=== PATIENT | male | born 1980 | race Caucasian/White ===

== ENCOUNTER 2022-02-12 13:30 | Emergency (ER) | payer OTHER ==
[~2022-02-12] VITALS: Ht 190 cm; Wt 91.0 kg
--- NOTE | 2022-02-12 15:16 | ED General ---
General Chief Complaint: COVID19 Suspect/Confirmed Stated Complaint: FEVER - HEADACHE - CONFUSION - STIFF NECK Nursing Triage Note: PT STATES HIS CHILDREN HAVE HAD HAND FOOT AND MOUTH, HE PT HAS BEEN RUNNING A FEVER WITH BUMPS ON HIS HANDS, TEMP TO 103.7 WITH A HEADACHE, NO APPITITE, FEVER UP AND DOWN YESTERDAY WITH HEADACHE. LAST TOOK EXCEDRIN AT 1000, IBUPROFEN 2200 LAST NIGHT. STIFF NECK AT TRIAGE. VOMITED ONCE WEDNESDAY. FATIGUE BUT NOT EATING Source of Information: Patient Exam Limitations: No Limitations History of Present Illness Date Seen by Provider: Feb 12, 2022 Time Seen by Provider: 15:00 Initial Comments Patient is a 41-year-old male negative past medical history who presents to the emergency department chief complaint headache, fever, rash on his right hand. Symptom onset last Wednesday or Wednesday. He did have contact with his 6-year-old child who was diagnosed with juru-ynum-bhz-mouth about a week to 10 days ago. One of his older children also had it prior to that. He states headache was most severe on Wednesday of this last week. He has been taking Tylenol and ibuprofen without much relief of symptoms. T-max of 102.7 also on Wednesday. He has had no real appetite over the last several days. States he was mildly dizzy with getting up and around this morning but those symptoms have abated today. He has had no diarrhea, black or bloody stools. No problems with urination. No sore throat or sores in his mouth that he has identified. He does have a punctate, what appears to be healing rash on the dorsum of his right hand. He thinks he might of had blisters on the palmar surface a couple of days ago. He is quite fatigued. Denies neck pain. Denies joint pains other rashes or swelling mild headache currently. Last took Excedrin at 10 AM this morning. Afebrile on presentation. All other review of systems reviewed and negative except as stated Timing/Duration: 2-3 Days Severity: Mild Associated Systoms: Headaches, Nausea/Vomiting Allergies and Home Medications Patient Home Medication List Home Medication List Reviewed: Yes Review of Systems Review of Systems Constitutional: see HPI, fever, malaise EENTM: no symptoms reported Respiratory: no symptoms reported Cardiovascular: no symptoms reported Gastrointestinal: nausea, vomiting Genitourinary: no symptoms reported Musculoskeletal: muscle cramps Skin: rash Psychiatric/Neurological: Headache Past Mpfpxij-Zoyzfh-Eogotn Hx Patient Social History Tobacco Use?: No Substance use?: No Alcohol Use?: Yes Alcohol type: Beer Alcohol Frequency: Rarely Physical Exam Vital Signs Vital Signs - First Documented 02/12/22 14:24 Temp 37.3 Pulse 96 Resp 20 B/P (MAP) 125/98 (107) Pulse Ox 98 O2 Delivery Room Air Capillary Refill : Less Than 3 Seconds Height, Weight, BMI Height: '" Weight: lbs. oz. kg; 25.00 BMI Method: General Appearance: No Apparent Distress, WD/WN Eyes: Bilateral Eye Normal Inspection, Bilateral Eye PERRL, Bilateral Eye EOMI HEENT: PERRL/EOMI, TMs Normal, Normal ENT Inspection, Pharynx Normal Neck: Full Range of Motion, Normal Inspection, Non Tender, Supple, Other (neg Kernig's Neg Brudzinski's) Respiratory: Lungs Clear, Normal Breath Sounds, No Accessory Muscle Use, No Respiratory Distress Cardiovascular: Regular Rate, Rhythm, Normal Peripheral Pulses Gastrointestinal: Non Tender, Soft Extremity: Normal Inspection, Normal Range of Motion, Non Tender, No Calf Tenderness, No Pedal Edema Neurologic/Psychiatric: Alert, Oriented x3, No Motor/Sensory Deficits, Normal Mood/Affect, utility operator II-XII Norm as Tested Skin: Normal Color, Warm/Dry, Other (small punctate, non palpable lesions dorsum of right hand - appear to be healing; no pustules or open wounds) Progress/Results/Core Measures Suspected Sepsis SIRS Temperature: Pulse: 96 Respiratory Rate: 20 Blood Pressure 125 /98 Mean: 107 Results/Orders Vital Signs/I&O 02/12/22 02/12/22 14:24 15:49 Temp 37.3 37.3 Pulse 96 96 Resp 20 20 B/P (MAP) 125/98 (107) 125/98 Pulse Ox 98 98 O2 Delivery Room Air Room Air Capillary Refill : Less Than 3 Seconds Blood Pressure Mean: 107 Progress Note : Time: 15:13 Progress Note Long discussion with the patient regarding the natural course and progression of "pibk-pfkb-iud-mouth disease" which is primarily caused by a virus. I advised that there was no treatment for this other than supportive care, fluids antipyretics etc. I did offer COVID testing as he does have some symptoms that are suggestive of a COVID infection. It would not be unusual to have COVID infections. Patient declines COVID testing today. He is not COVID vaccinated. His vital signs are stable, no increased work of breathing, normal active oxygen saturations, normal blood pressure. Pulse is slightly elevated at 100. Again he is afebrile. He has no meningeal signs, negative Kernig's, negative Brudzinski's. He is alert and oriented. I advised him to isolate until he is asymptomatic. I advised him to monitor his symptoms for increasing shortness of breath within the next couple of days and gave him return precautions. He verbalized understanding. All questions are sought and answered. Departure Impression Primary Impression: Viral syndrome Disposition: HOME, SELF-CARE Condition: Stable Departure-Patient Inst. Decision time for Depature: 15:15 Referrals: SUSHILA REIS DO (PCP/Family) Primary Care Physician Patient Instructions: Viral Syndrome (DC) Add. Discharge Instructions: Drink extra fluids over the next couple of days to stay well-hydrated. You can take jlym-bch-vowcqnk Aleve or generic naproxen, 2 tablets which is 500 mg twice daily with food for body aches and fever. You can take Tylenol while taking Aleve. Try to push good nutrition to help your body fight what ever viral infection you are fighting. If you develop worsening rash, shortness of breath, vomiting or any other emergent, concerning symptoms please come back to the emergency room for reevaluation. MEG LANIER MD Feb 12, 2022 15:16
[2022-02-12 15:49] VITALS: BP 125/98
== END 2022-02-12 15:49 | disposition home or self-care (01) ==
LOC: EDUNIT# 13:30 → ER 13:33
DX: B34.9 Viral infection, unspecified (principal); Z28.310 Unvaccinated for COVID-19
CPT/HCPCS: 99281